=== PATIENT | male | born 1965 | race Caucasian/White ===

== ENCOUNTER 2017-08-15 11:58 | Observation (INO) | payer OTHER ==
[2017-08-15] MEDS ORDERED: FAMOTIDINE 20 MG TAB PO ONE (12:00)
[2017-08-15] MEDS ORDERED: NS 1,000 ML IV ONE (12:00)
[2017-08-15] MEDS ORDERED: diphenhydrAMINE 25 MG CAP PO ONE ×2 (12:00→15:01)
[2017-08-15] MEDS ORDERED: DIAZEPAM 5 MG TAB PO ONE (12:00)
[2017-08-15] MEDS ORDERED: ASPIRIN EC 325 MG TAB PO ONE ×2 (12:00→15:02)
--- NOTE | 2017-08-15 12:07 | CPEKG ---
Heart Rate: 75 RR Interval: 800 P-R Interval: 168 QRSD Interval: 74 QT Interval: 348 QTC Interval: 389 P [place]: 55 QRS [place]: 27 T Wave [place]: 35 EKG Severity - NORMAL ECG - EKG Impression: SINUS RHYTHM Electronically Signed By: Hemal Espana 15-Aug-2017 12:28:08
[2017-08-15 12:28] LABS: PLATELET COUNT 240 10^3/uL (150-400)
[2017-08-15 12:33] LABS: INR 0.88 (0.83-1.16); PROTIME(PATIENT) 12.2 SEC (12.0-15.0)
[2017-08-15] MEDS ORDERED: DIAZEPAM 5 MG TAB ONE (15:02)
[2017-08-15] MEDS ORDERED: FAMOTIDINE 20 MG TAB ONE (15:02)
--- NOTE | 2017-08-15 15:58 | PDPROPOC ---
Sedation Plan of Care Sedation Plan of Care: vital signs stable, mental status noted, patient educated of risks, benefits, alternatives, patient can tolerate sedation ASA Classification: ASA 1 Planned drugs: fentanyl, midazolam Mallampati Score: Class 2 Mallampati Reference Image: Patient passed 3-3-2 rule?: Yes
--- NOTE | 2017-08-15 15:58 | PDHPUP ---
History & Physical Update H&P update statement: This history and physical update is based on an assessment of the patient which was completed after admission or registration (within 24 hours), but prior to the surgery/procedure. H&P update: H&P reviewed & patient examined, no change in patient's condition since H&P completed
[2017-08-15] MEDS ORDERED: HEPARIN 10,000 UNIT/10 ML MDV (1,000 UNIT/ML) ONE ×2 (16:03→17:00)
[2017-08-15] MEDS ORDERED: MIDAZOLAM 2 MG/2 ML VIAL ONE ×2 (16:03→16:56)
[2017-08-15] MEDS ORDERED: LIDOCAINE 1% 300 MG/30 ML SDV ONE (16:03)
[2017-08-15] MEDS ORDERED: fentaNYL 100 MCG/2 ML INJ ONE ×3 (16:03→17:21)
[2017-08-15] MEDS ORDERED: VERAPAMIL 5 MG/2 ML VIAL ONE (16:03)
[2017-08-15] MEDS ORDERED: IOPAMIDOL (ISOVUE-370) 150 ML BTL IV ONE (16:04)
[2017-08-15] MEDS ORDERED: BIVALIRUDIN 250 MG/5 ML VIAL IV ONE (16:58)
[2017-08-15] MEDS ORDERED: NITROGLYCERIN 1,500 MCG/15 ML VIAL MISC ONE (17:10)
[2017-08-15] MEDS ORDERED: PRASUGREL HCL 10 MG TAB ONE ×2 (17:42→17:44)
[2017-08-15] MEDS ORDERED: ATROPINE SULFATE 1 MG/10 ML SYR IVP PRN (18:06)
[2017-08-15] MEDS ORDERED: NITROGLYCERIN 0.4 MG BTL SL PRN (18:06)
[2017-08-15] MEDS ORDERED: ACETAMINOPHEN 325 MG TAB PO PRN (18:06)
[2017-08-15] MEDS ORDERED: PRASUGREL HCL 10 MG TAB PO ONE (18:06)
[2017-08-15] MEDS ORDERED: ONDANSETRON 4 MG/2 ML VIAL IVP PRN (18:06)
[2017-08-15] MEDS ORDERED: TEMAZEPAM 15 MG CAP PO PRN (18:06)
[2017-08-15] MEDS ORDERED: NS 1,000 ML IV SCH (18:15)
--- NOTE | 2017-08-15 18:19 | PDDXCAT ---
Diagnostic Cath Note - . Date: 08/15/17 Supervisor [employer]: Santosh Indication: other (CCS class III angina and early positive ETT.) - Procedure Access: right wrist (Radial artery spasm dictated a switch to the femoral approach for the interventional portion of the procedure.) - Materials Left Heart Cath size: 5F Left Heart Cath materials: standard multipack (JL4, JR4, pigtail) - Findings-Left Heart Catheterization LM: Normal. LAD: Mild irregularities. LCX: Focal 90% mid-circumflex lesion; otherwise mild irregularities. RCA: Mild irregularities. EDP: 23 mmHg LVEF: 55% Wall motion: Normal. Complications: None Estimated blood loss: <50ml Closure method: Angioseal (TR Band for radial site.) Assessment: 1) Normal LV systolic function. 2) CCAD as described above. 3) Successful PCI of the circumflex with placement of a single drug coated stent. Intervention: Based on the patient's clinical history and diagnostic angiography, the decision was made to perform percutaneous coronary intervention of the circumflex. The patient received 3000 units of intravenous heparin in addition to the 5000 units that had been given at the beginning of the procedure. A 6 Amharic CLS 3.5 guide catheter was advanced to the left main. An Intuition guidewire was advanced into the distal portion of the circumflex. Predilatation of the focal 90% lesion in the midportion of the circumflex was performed using a 2.5 x 8 mm Emerge balloon. A 3.0 x 12 mm Synergy stent was then advanced into position and deployed at high pressure. Final angiograms demonstrated 0% residual stenosis and MURIEL-III flow.
--- NOTE | 2017-08-15 18:28 | CPEKG ---
Heart Rate: 58 RR Interval: 1034 P-R Interval: 180 QRSD Interval: 78 QT Interval: 404 QTC Interval: 397 P [place]: 44 QRS [place]: 38 T Wave [place]: 32 EKG Severity - NORMAL ECG - EKG Impression: SINUS RHYTHM Electronically Signed By: Hemal Espana 16-Aug-2017 07:24:04
[2017-08-15] MEDS: HYDROCODONE/APAP 5/325 TAB PO PRN (20:10)
[2017-08-15] MEDS ORDERED: TAMSULOSIN HCL 0.4 MG CAP PO SCH (21:00)
[2017-08-16] MEDS: HYDROCODONE/APAP 5/325 TAB PO PRN (05:33)
[2017-08-16] MEDS ORDERED: PANTOPRAZOLE SODIUM 40 MG TAB PO SCH (07:30)
[2017-08-16] MEDS ORDERED: ASPIRIN EC 325 MG TAB PO SCH (09:00)
[2017-08-16] MEDS ORDERED: PRASUGREL HCL 10 MG TAB PO SCH (09:00)
[2017-08-16] MEDS ORDERED: ATORVASTATIN CALCIUM 40 MG TAB PO SCH (09:00)
[2017-08-16] MEDS ORDERED: LOSARTAN POTASSIUM 50 MG TAB PO SCH (10:00)
[2017-08-16] MEDS ORDERED: METOPROLOL SUCCINATE XR 25 MG TAB PO SCH (12:00)
[2017-08-16 12:40] VITALS: O2SAT 97
[2017-08-16 12:41] VITALS: BP 132/67; RESP 14; TEMP 98.6
[2017-08-16 12:44] VITALS: PULSE 77
--- NOTE | 2017-08-16 13:44 | GDS ---
[f rep st] DISCHARGE SUMMARY REASON FOR ADMISSION: Coronary artery disease. HOSPITAL COURSE: Please refer to the recent office note by Dr. Milton Li, which serves as the hist ory and physical for this hospital encounter. Also, refer to my prepared cardiac catheterization rep ort. The patient is a 52-year-old male who recently presented with new-onset exertional angina. He was seen in the office by Dr. Li and an exercise treadmill test was scheduled. Yesterday he under went that study and had clinical angina and ischemic ST-segment changes early in stage 2 of his stres s test. On the basis of his history and stress test findings, Dr. Li asked that he be sent to the hospital for cardiac catheterization. Yesterday that procedure demonstrated normal left ventricular systolic function, minimal irregularities of the left anterior descending and right coronary artery, and a focal high-grade stenosis in the midportion of the circumflex. He underwent PCI with placemen t of a 3.0 x 12 mm Synergy drug-coated stent. The angiographic outcome was excellent. Overnight, he has had no complications or bleeding issues. His catheterization procedure was initiated from the r ight radial approach. The diagnostic portion of the study was completed, but when the interventional portion of the procedure was begun, he began to develop radial artery spasm necessitating a switch t o the right femoral approach. He is not having any significant discomfort at either site. He has no t had any hematoma formation. He is stable and ready for discharge. RECOMMENDATIONS AND DISPOSITION ON DISCHARGE: The patient is discharged in stable condition. He kavya uld follow a heart healthy diet. He will be contacted by cardiac rehab and was encouraged to attend. Please refer to the electronic record for his discharge medications. The only changes being made a re the addition of Effient 10 mg daily and an increase of his atorvastatin to 40 mg daily. Lipid metzger el performed during his hospital stay demonstrated a total cholesterol of 239 with HDL 33, and trigly cerides 525. A calculated LDL could not be provided due to his hypertriglyceridemia. A directly lyndon sured LDL has been requested to be drawn prior to his discharge. This morning genetic testing was al so sent to determine his clopidogrel metabolism. The office staff at [facility] has been instructed to contact the patient to arrange a followup ap pointment in the near future with Dr. Li. DISCHARGE DIAGNOSES: 1. Coronary artery disease. 2. Hypercholesterolemia. 3. Hypertriglyceridemia. 4. Status post uneventful percutaneous intervention of the circumflex with placement of a single vianey g-coated stent. /[id number]/MODL
[2017-08-16] MEDS ORDERED: MULTIVITAMINS 1 EACH TAB PO SCH (18:00)
[2017-08-16] MEDS ORDERED: ASCORBIC ACID 500 MG TAB PO SCH (18:00)
== END 2017-08-16 15:26 | disposition home or self-care (01) ==
LOC: FCATH 11:58 → F2W 17:15 → F2N 19:20
PROVIDERS: ADMIT Internal Medicine Interventional Cardiology; ATTEND Internal Medicine Interventional Cardiology
DX: I25.119 Atherosclerotic heart disease of native coronary artery with unspecified angina pectoris (principal); E78.5 Hyperlipidemia, unspecified; I10 Essential (primary) hypertension; E11.9 Type 2 diabetes mellitus without complications; Z82.49 Family history of ischemic heart disease and other diseases of the circulatory system; Z88.2 Allergy status to sulfonamides
CPT/HCPCS: 81225-90; C1725; C1760; C1769; C1874; C1887; C9600; G0378; J0583; J1200; J1644; J2250; J3010; Q9967

== ENCOUNTER 2018-01-27 10:53 | Observation (INO) | payer OTHER ==
--- NOTE | 2018-01-27 11:06 | CPEKG ---
Heart Rate: 93 RR Interval: 645 P-R Interval: 148 QRSD Interval: 74 QT Interval: 328 QTC Interval: 408 P [place]: 47 QRS [place]: 15 T Wave [place]: 27 EKG Severity - NORMAL ECG - EKG Impression: SINUS RHYTHM Electronically Signed By: Keke Manrique 27-Jan-2018 15:18:10
[2018-01-27] MEDS ORDERED: ASPIRIN 81 MG CHEWABLE TAB ONE (11:13)
--- NOTE | 2018-01-27 12:21 | EDPHY ---
H & P Stated Complaint: Chest pain, dizziness,sweating, neck and left arm pain Time Seen by Provider: 01/27/18 11:45 HPI/ROS: CHIEF COMPLAINT: Pain between shoulder blades, chest pain HISTORY OF PRESENT ILLNESS: 53-year-old male with CAD, status post stent placement, presents with chest and upper back pain. 1 week ago he developed dizziness, nausea and sweatiness, which he feels is typical of his cardiac symptoms. He called the cardiology office and his metoprolol was increased. Onset of pain between his shoulder brain early age yesterday morning upon awakening. The pain is severe and does not change with exertion or with movement. This morning he awoke with moderate chest tightness, which ultimately prompted his ED visit. No shortness of breath. Prior to stent placement, he had similar chest tightness. No prior history of pain between his shoulder blades. REVIEW OF SYSTEMS: complete 10 point ROS negative except at noted in the HPI - Personal History Current Tetanus/Diphtheria Vaccine: Unsure Current Tetanus Diphtheria and Acellular Pertussis (TDAP): Unsure - Medical/Surgical History Hx Asthma: No Hx Chronic Respiratory Disease: No Hx Diabetes: No Hx Cardiac Disease: Yes Hx Renal Disease: No Hx Cirrhosis: No Hx Alcoholism: No Hx HIV/AIDS: No Hx Splenectomy or Spleen Trauma: No Other PMH: gbladder, R hip, Bilat Wrist, L bunionectomy,Stent 08/2017 - Social History Smoking Status: Light smoker Constitutional: Initial Vital Signs Temperature (C) 36.5 C 01/27/18 10:56 Heart Rate 106 H 01/27/18 10:56 Respiratory Rate 18 01/27/18 10:56 Blood Pressure 141/94 H 01/27/18 10:56 O2 Sat (%) 99 01/27/18 10:56 O2 Delivery Mode Nasal Cannula O2 (L/minute) 2 Allergies/Adverse Reactions: ciprofloxacin [From Cipro] Allergy (Verified 01/27/18 11:00) Rash erythromycin base Allergy (Verified 01/27/18 11:00) Hives latex Allergy (Verified 01/27/18 11:00) Rash Sulfa (Sulfonamide Antibiotics) Allergy (Verified 01/27/18 11:00) Hives Home Medications: Medication Instructions Recorded Ascorbic Acid [Vitamin C 500 mg 1,000 mg PO DAILY18 08/15/17 (*)] Aspirin EC [Aspirin EC 81 mg (*)] 81 mg PO DAILY@18 08/15/17 Esomeprazole Mag Trihydrate 40 mg PO DAILY06 08/15/17 [Nexium] Herbals/Supplements -Info Only 1 ea PO DAILY 08/15/17 Metoprolol Succinate Xr [Toprol Xl 25 mg PO DAILY@12 08/15/17 25 mg (*)] Multivitamins [Multivitamin (*)] 1 each PO DAILY18 08/15/17 Nitroglycerin [Nitrostat 0.4 mg 0.4 mg SL Q5M PRN 08/15/17 (*)] Tadalafil [Cialis] 10 mg PO DAILY PRN 08/15/17 Tamsulosin HCl [Flomax 0.4 MG (*)] 0.4 mg PO HS 08/15/17 Prasugrel HCl [Effient 10mg (*)] 10 mg PO DAILY #30 tab 08/16/17 Losartan Potassium [Cozaar 25 mg 25 mg PO HS 01/27/18 (*)] Pravastatin Sodium [Pravachol] 10 mg PO HS 01/27/18 Medical Decision Making - Diagnostics EKG Interpretation: EKG interpreted by me reveals normal sinus rhythm, rate 93, minimal ST segment depression in leads V2 and V3. Interpretation: borderline EKG Imaging Results: Imaging Impressions Chest X-Ray 01/27/18 11:45 Impression: Clear lungs. No acute process. Chest/Thorax CTA 01/27/18 12:18 Impression: 1. No evidence of thrombopulmonary embolic disease. 2. Normal caliber aorta. No dissection or aneurysm. 3. Mild airways disease. 4. No fracture or explanation for scapular pain. Findings discussed with Emergency Department physician, Keke Manrique on 2017, 12:47. ED Course/Re-evaluation: This patient presents with chest and upper back pain. Stat EKG reveals minimal ST segment depression in leads V2 and V3. Troponin is negative. Clinical history concerning for aortic dissection. CTA of the chest ordered and is unremarkable; no evidence of dissection or pulmonary embolism. Dilaudid 0.5 mg IV given for pain control with some relief. However he continues to have persistent chest pain. Given high risk for acute coronary syndrome, this patient will need to be admitted for further cardiac evaluation. Stable through his ED stay. The hospitalist service was consulted for admission. Differential Diagnosis: Differential diagnosis includes though it is not limited to pneumonia, pneumothorax, pulmonary embolism, aortic dissection, pericarditis, acute coronary syndrome. - Data Points Laboratory Results: Laboratory Results 01/27/18 11:08 01/27/18 11:08 01/27/18 01/27/18 01/27/18 11:13 11:08 11:08 WBC 6.34 10^3/uL 10^3/uL (3.80-9.50) RBC 4.91 10^6/uL 10^6/uL (4.40-6.38) Hgb 16.1 g/dL g/dL (13.7-17.5) Hct 46.9 % % (40.0-51.0) MCV 95.5 fL fL (81.5-99.8) MCH 32.8 pg pg (27.9-34.1) MCHC 34.3 g/dL g/dL (32.4-36.7) RDW 13.0 % % (11.5-15.2) Plt Count 275 10^3/uL 10^3/uL (150-400) Sodium 139 mEq/L mEq/L (135-145) Potassium 3.9 mEq/L mEq/L (3.3-5.0) Chloride 106 mEq/L mEq/L (97-110) Carbon Dioxide 23 mEq/l mEq/l (22-31) Anion Gap 10 mEq/L mEq/L (8-16) BUN 12 mg/dL mg/dL (7-23) Creatinine 0.9 mg/dL mg/dL (0.7-1.3) Estimated GFR > 60 Glucose 163 mg/dL H mg/dL (70-100) Calcium 10.1 mg/dL mg/dL (8.5-10.4) Total Bilirubin 0.4 mg/dL mg/dL (0.1-1.4) AST 20 IU/L IU/L (17-59) ALT 36 IU/L IU/L (21-72) Alkaline Phosphatase 61 IU/L IU/L (38-126) POC Troponin I 0.00 ng/mL ng/mL (0.00-0.08) Total Protein 7.9 g/dL g/dL (6.3-8.2) Albumin 5.1 g/dL H g/dL (3.5-5.0) Medications Given: Discontinued Medications Aspirin (Aspirin) 324 mg PO EDNOW ONE Stop: 01/27/18 12:52 Last Admin: 01/27/18 12:52 Dose: 324 mg Hydromorphone HCl (Dilaudid) 0.5 mg IVP EDNOW ONE Stop: 01/27/18 12:50 Last Admin: 01/27/18 12:52 Dose: 0.5 mg Morphine Sulfate (Morphine) 6 mg IVP EDNOW ONE Stop: 01/27/18 12:23 Last Admin: 01/27/18 12:52 Dose: Not Given Ondansetron HCl (Zofran) 4 mg IVP EDNOW ONE Stop: 01/27/18 12:23 Last Admin: 01/27/18 12:43 Dose: 4 mg Point of Care Test Results: Chemistry 01/27/18 11:13 POC Troponin I 0.00 ng/mL ng/mL (0.00-0.08) Departure - Departure Disposition: [facility] Inpatient Acute Clinical Impression: Chest pain Qualifiers: Chest pain type: precordial pain Qualified Code(s): R07.2 - Precordial pain Condition: Fair
[2018-01-27] MEDS ORDERED: ONDANSETRON 4 MG/2 ML VIAL IVP ONE (12:22)
[2018-01-27] MEDS ORDERED: IOPAMIDOL (ISOVUE 370) 100 ML BTL IV ONE (12:23)
[2018-01-27] MEDS ORDERED: HYDROmorphONE/DILAUDID 1 MG/ML INJ ONE (12:48)
[2018-01-27] MEDS ORDERED: HYDROmorphONE/DILAUDID 2 MG/ML INJ IVP ONE (12:49)
[2018-01-27] MEDS ORDERED: ASPIRIN 81 MG CHEWABLE TAB PO ONE (12:51)
[2018-01-27] MEDS ORDERED: ONDANSETRON DISINTEGRATING 4 MG TAB PO PRN (13:58)
[2018-01-27] MEDS ORDERED: ONDANSETRON 4 MG/2 ML VIAL IVP PRN (13:58)
--- NOTE | 2018-01-27 14:20 | ASMTCMCOM ---
CM Note CM Note Notes: Chart reviewed. 53 year old male with known history of CAD admitted via ED for c/o pain between his shoulder blades, He is admitted for this reason. Normally lives independent with his life partner. No needs anticipated at this time. CM available should needs arise. Plan: TBD Date Signed: 01/27/2018 02:20 PM Electronically Signed By:Carmen Dee RN
--- NOTE | 2018-01-27 14:23 | PDGENHP ---
History and Physical - Chief Complaint pain between shoulder blades - History of Present Illness 53yo M with history of CAD s/p ALETHEA to mid-x 08/2017 due to unstable angina with preserved LV function presents with 1 day of pain between shoulder blades. Started yesterday with normal activities and seemed to lessen with rest. Did radiate to left arm this morning and around to throat area that prompted him to come to ED. This pain is slightly similar to pain that prompted coronary angiography in August but this time there is no chest tightness. Not exertional, pleuritic or positional. No leg swelling, orthopnea, syncope. Over the last week has noticed intermittent diaphoresis, nausea, palpitations but not explicitly associated with his presenting symptom. He only took tylenol for the pain. He hasn't missed any doses of prasugrel but missed the last 3 days of aspirin. 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 He has been doing well in cardiac rehab with no anginal symptoms. In the ED, ECG showed ST depressions <1mm in V2-4 and had negative POC troponin. A CTA chest was negative for PE and aortic pathology. Admitted for ACS rule out. History Information - Allergies/Home Medication List Allergies/Adverse Reactions: ciprofloxacin [From Cipro] Allergy (Verified 01/27/18 11:00) Rash erythromycin base Allergy (Verified 01/27/18 11:00) Hives latex Allergy (Verified 01/27/18 11:00) Rash Sulfa (Sulfonamide Antibiotics) Allergy (Verified 01/27/18 11:00) Hives Home Medications: Ascorbic Acid [Vitamin C 500 mg (*)] 1,000 mg PO DAILY18 08/15/17 [Last Taken ] Aspirin EC [Aspirin EC 81 mg (*)] 81 mg PO DAILY@18 08/15/17 [Last Taken 324] Esomeprazole Mag Trihydrate [Nexium] 40 mg PO DAILY06 08/15/17 [Last Taken 01/27] Herbals/Supplements -Info Only 1 ea PO DAILY 08/15/17 [Last Taken Unknown] Metoprolol Succinate Xr [Toprol Xl 25 mg (*)] 25 mg PO DAILY@12 08/15/17 [Last Taken 01/27/18] Multivitamins [Multivitamin (*)] 1 each PO DAILY18 08/15/17 [Last Taken 08/14/17 ] Nitroglycerin [Nitrostat 0.4 mg (*)] 0.4 mg SL Q5M PRN 08/15/17 [Last Taken Unknown] Tadalafil [Cialis] 10 mg PO DAILY PRN 08/15/17 [Last Taken 01/13/18] Tamsulosin HCl [Flomax 0.4 MG (*)] 0.4 mg PO HS 08/15/17 [Last Taken 01/26/18] Losartan Potassium [Cozaar 25 mg (*)] 25 mg PO HS 01/27/18 [Last Taken 01/26/18] Pravastatin Sodium [Pravachol] 10 mg PO HS 01/27/18 [Last Taken 01/26/18] I have personally reviewed and updated: family history, medical history, social history, surgical history - Past Medical History Additional medical history: CAD s/p ALETHEA to LCs (08/2017), hypertriglyceridemia, erectile dysfunction, gerd - Surgical History Additional surgical history: cholecystectomy, several orthopedic procedures, left knee reconstruction - Family History Additional family history: mother - [place] at 54, no known diabetes - Social History Smoking Status: Light smoker (uses vap pen daily) Alcohol Use: Rarely Drug Use: Marijuana Review of Systems Review of Systems: ROS: 10pt was reviewed & negative except for what was stated in HPI & below Constitutional: Reports: diaphoresis. Denies: chills, fever EENMT: Reports: no symptoms Cardiac: Reports: palpitations. Denies: chest pain, edema, syncope Respiratory: Reports: shortness of breath. Denies: cough, orthopnea Gastrointestinal: Reports: nausea. Denies: vomitting, diarrhea Genitourinary: Reports: no symptoms Muscolosketal: Reports: back pain Skin: Reports: no symptoms Neurological: Reports: no symptoms Hematologic/Lymphatic: Reports: no symptoms Physical Exam Physical Exam: Temp Pulse Resp BP Pulse Ox 36.5 C 71 16 131/83 H 99 01/27/18 10:56 01/27/18 13:26 01/27/18 13:26 01/27/18 13:26 01/27/18 13:26 O2 (L/minute) 2 Constitutional: no apparent distress, appears nourished, not in pain Eyes: PERRL, anicteric sclera, EOMI Ears, Nose, Mouth, Throat: moist mucous membranes, hearing normal, ears appear normal, no oral mucosal ulcers Cardiovascular: regular rate and rhythym, no murmur, rub, or gallop, pulses symmetric bilaterally, No JVD, No edema Respiratory: no respiratory distress, no rales or rhonchi, clear to auscultation Gastrointestinal: normoactive bowel sounds, soft, non-tender abdomen, no palpable masses Genitourinary: no bladder fullness, no bladder tenderness Skin: warm, normal color, no rashes or abrasions, no fluctuance, no induration, No mottled Musculoskeletal: other (mild tenderness between scapular region) Neurologic: AAOx3, sensation intact bilaterally, CN II-XII Intact Psychiatric: interacting appropriately, not anxious, not encephalopathic, thought process linear Lab Data & Imaging Review 01/27/18 11:08 01/27/18 11:08 WBC 6.34 10^3/uL (3.80-9.50) 01/27/18 11:08 RBC 4.91 10^6/uL (4.40-6.38) 01/27/18 11:08 Hgb 16.1 g/dL (13.7-17.5) 01/27/18 11:08 Hct 46.9 % (40.0-51.0) 01/27/18 11:08 MCV 95.5 fL (81.5-99.8) 01/27/18 11:08 MCH 32.8 pg (27.9-34.1) 01/27/18 11:08 MCHC 34.3 g/dL (32.4-36.7) 01/27/18 11:08 RDW 13.0 % (11.5-15.2) 01/27/18 11:08 Plt Count 275 10^3/uL (150-400) 01/27/18 11:08 Sodium 139 mEq/L (135-145) 01/27/18 11:08 Potassium 3.9 mEq/L (3.3-5.0) 01/27/18 11:08 Chloride 106 mEq/L (97-110) 01/27/18 11:08 Carbon Dioxide 23 mEq/l (22-31) 01/27/18 11:08 Anion Gap 10 mEq/L (8-16) 01/27/18 11:08 BUN 12 mg/dL (7-23) 01/27/18 11:08 Creatinine 0.9 mg/dL (0.7-1.3) 01/27/18 11:08 Estimated GFR > 60 01/27/18 11:08 Glucose 163 mg/dL (70-100) H 01/27/18 11:08 Calcium 10.1 mg/dL (8.5-10.4) 01/27/18 11:08 Total Bilirubin 0.4 mg/dL (0.1-1.4) 01/27/18 11:08 AST 20 IU/L (17-59) 01/27/18 11:08 ALT 36 IU/L (21-72) 01/27/18 11:08 Alkaline Phosphatase 61 IU/L (38-126) 01/27/18 11:08 POC Troponin I 0.00 ng/mL (0.00-0.08) 01/27/18 11:13 Total Protein 7.9 g/dL (6.3-8.2) 01/27/18 11:08 Albumin 5.1 g/dL (3.5-5.0) H 01/27/18 11:08 Visualized and Interpreted Chest x-ray results: Yes Chest X-Ray results: no infiltrate, normal, normal heart size Visualized and Interpreted EKG results: Yes EKG Interpretation: Positive for: normal sinsus rhythm, ST depression (<1mm STD in V2-4) Assessment & Plan Assessment: 53yo M with history of CAD s/p ALETHEA to LCx 08/2017 with preserved LV function presents with 1 day of pain between scapulae admitted for ACS rule out. Plan: #Back pain: CTA chest without PE or aortic dissection. Seems non-cardiac although slightly similar presentation when had unstable angina in past. Additionally has ST depressions in precordial leads. Initial troponin negative. Will trend serial troponins/ECGs, monitor on telemetry. Obtain TTE. Holding on systemic anticoagulation and stress test. Discuss with cardiology in AM. Continue DAPT, statin. #CAD: S/p ALETHEA to mid-LCx 08/2017 for unstable angina; minimal disease in LAD and RCA. Followed by Dr Li who last saw 09/2017. Continue aspirin, prasugrel, statin, BB. #Hyperlipidemia with hypertriglyceridemia: Continue statin. #GERD: Continue PPI VTE ppx: low risk, SCDs Diet: cardiac Code: FCFT Dispo: admit under observation to rule out ACS in high risk patient
--- NOTE | 2018-01-27 16:19 | CPEKG ---
Heart Rate: 59 RR Interval: 1017 P-R Interval: 184 QRSD Interval: 74 QT Interval: 400 QTC Interval: 397 P [place]: 47 QRS [place]: 29 T Wave [place]: 32 EKG Severity - NORMAL ECG - EKG Impression: SINUS RHYTHM Electronically Signed By: Raúl Mosqueda 27-Jan-2018 18:22:02
[2018-01-27] MEDS: NITROGLYCERIN 0.4 MG BTL SL PRN ×3 (16:41→16:57)
[2018-01-27] MEDS: ASPIRIN EC 81 MG TAB PO SCH (18:43)
[2018-01-27] MEDS ORDERED: NITROGLYCERIN/DEXTROSE 250 ML IV SCH (19:00)
[2018-01-27] MEDS: ACETAMINOPHEN 325 MG TAB PO PRN (19:45)
[2018-01-27] MEDS: PRAVASTATIN SODIUM 10 MG TAB PO SCH (21:46)
[2018-01-27] MEDS: TAMSULOSIN HCL 0.4 MG CAP PO SCH (21:46)
[2018-01-27] MEDS: LOSARTAN POTASSIUM 25 MG TAB PO SCH (21:47)
[2018-01-27] MEDS ORDERED: MELATONIN 3 MG TAB PO PRN (23:27)
[2018-01-28] MEDS: oxyCODONE IR 5 MG TAB PO PRN ×2 (05:13→09:52)
[2018-01-28] MEDS ORDERED: PANTOPRAZOLE SODIUM 40 MG TAB PO SCH ×2 (09:00→21:00)
[2018-01-28] MEDS ORDERED: PRASUGREL HCL 10 MG TAB PO SCH (09:00)
[2018-01-28] MEDS ORDERED: diphenhydrAMINE 25 MG CAP PO ONE ×2 (11:30→11:48)
[2018-01-28] MEDS ORDERED: ACETAMINOPHEN 325 MG TAB PO PRN (11:30)
[2018-01-28] MEDS ORDERED: ASPIRIN EC 325 MG TAB PO ONE ×2 (11:30→11:48)
[2018-01-28] MEDS ORDERED: FAMOTIDINE 20 MG TAB PO ONE (11:30)
[2018-01-28] MEDS ORDERED: DIAZEPAM 5 MG TAB PO ONE (11:30)
[2018-01-28] MEDS ORDERED: TEMAZEPAM 15 MG CAP PO PRN (11:30)
[2018-01-28] MEDS ORDERED: NITROGLYCERIN 0.4 MG BTL SL PRN (11:30)
[2018-01-28] MEDS ORDERED: LIDOCAINE 1% 300 MG/30 ML SDV ONE (11:34)
[2018-01-28] MEDS ORDERED: IOPAMIDOL (ISOVUE-370) 150 ML BTL IV ONE (11:35)
[2018-01-28] MEDS ORDERED: fentaNYL 100 MCG/2 ML INJ ONE (11:35)
[2018-01-28] MEDS ORDERED: MIDAZOLAM 2 MG/2 ML VIAL ONE (11:35)
--- NOTE | 2018-01-28 11:36 | PDPROPOC ---
Sedation Plan of Care Sedation Plan of Care: mental status noted, patient educated of risks, benefits , alternatives, patient can tolerate sedation ASA Classification: ASA 2 Planned drugs: fentanyl, midazolam Mallampati Score: Class 2 Mallampati Reference Image: Patient passed 3-3-2 rule?: Yes
--- NOTE | 2018-01-28 11:44 | ECHO ---
[email or web address] [address] [address] Main: [phone] Fax: [email or web address] Echocardiogram Name: VALERIY DUMONT MR#: [id number] Study Date: 01/28/2018 Study Time: 10:38 AM Date of : 1965 Age: 53 year(s) Height: 182.9 cm (72 in.) Weight: 83.01 kg (183 lb.) BSA: 2.05 m2 Gender: Male Examination: Echo Indication: Chest Pain, Hx of stent last August Image Quality: Contrast: Requested by: Dandy Laguna BP: 128 mmHg/67 mmHg Heart Rate: Rhythm: Normal sinus rhythm Indication: Chest Pain, Hx of stent last August Procedure Staff Block Saw Operator: Caleb Chino RDCS Reading Physician: Hemal Espana MD Requesting Provider: Conclusions: Normal global systolic LV function. EF is 62 %. Trivial tricuspid valve regurgitation. The pulmonary artery pressure is normal. Measurements: Chambers Valvular Assessment AV/MV Valvular Assessment TV/PV Normal Normal Normal Name Value Range Name Value Range Name Value Range Ao Genet (MM): 3.0 cm (2.2 cm-3.7 AV Vmax: 1.55 m/s (1 m/s-1.7 TR Vmax: 2.13 mm/s ( - ) cm) m/s) TR PGmax: 18 mmHg ( - ) IVSd (2D): 0.8 cm (0.6 cm-1.1 AV maxP mmHg ( - ) syst. PAP: 23 mmHg ( - ) cm) LVOT Vmax: 0.97 m/s (0.7 m/s-1.1 PV Vmax: 1.06 m/s (0.6 m/s-0.9 LVDd (2D): 4.8 cm (4.2 cm-5.9 m/s) m/s) cm) MV E Vmax: 0.62 m/s ( - ) PV PGmax: 4 mmHg ( - ) LVDs (2D): 3.2 cm (2.1 cm-4 MV A Vmax: 0.74 m/s ( - ) cm) MV E/A: 0.84 ( - ) LVPWd (2D): 0.9 cm (0.6 cm-1 cm) LVEF (2D): 62 (>=54 %) Continued Measurements: Chambers Valvular Assessment AV/MV Valvular Assessment TV/PV Name Value Name Value Name Value LADs Lon.5 cm MV E' Septal: 0.07 m/s CVP (est.): 5 mmHg LA Area: 14.5 cm2 MV E/E' Septal: 9.10 LA Volume: 39 ml MV E/E' Lateral: 11.20 LA Volume Index: 19.0 ml/m2 Patient: VALERIY DUMONT Study Date: 01/28/2018 Page 1 of 2 10:38 AM Findings: Left Ventricle: Normal size left ventricle. No LV hypertrophy. Normal global systolic LV function. EF is 62 %. No regional wall motion abnormality. Right Ventricle: Normal size right ventricle. Normal RV function. Left Atrium: The left atrium is normal in size. Right Atrium: The right atrium is normal in size. Mitral Valve: The mitral valve is normal in appearance and function. There is no mitral valve regurgitation. Aortic Valve: The aortic valve is tri-leaflet and functions normally. Tricuspid Valve: The tricuspid valve is normal in appearance and function. Trivial tricuspid valve regurgitation. The pulmonary artery pressure is normal. Pulmonic Valve: The pulmonic valve is normal in appearance and function. Aorta: The aorta is normal. Pericardium: No pericardial effusion. (No Signature Object) Patient: VALERIY DUMONT Study Date: 01/28/2018 Page 2 of 2 10:38 AM [id number]
[2018-01-28] MEDS ORDERED: FAMOTIDINE 20 MG TAB ONE (11:48)
[2018-01-28] MEDS ORDERED: DIAZEPAM 5 MG TAB ONE (11:48)
[2018-01-28] MEDS ORDERED: METOPROLOL SUCCINATE XR 25 MG TAB PO SCH (12:00)
--- NOTE | 2018-01-28 12:02 | ASMTCMCOM ---
CM Note CM Note Notes: Patient to [facility] for angiogram. Needs TBD at this time. CM to sandra. Plan: TBD Date Signed: 01/28/2018 11:54 AM Electronically Signed By:Carmen Dee RN
--- NOTE | 2018-01-28 12:08 | GCON ---
[f rep st] CONSULTATION CARDIOLOGY CONSULT CHIEF COMPLAINT: Chest pain. HISTORY OF PRESENT ILLNESS: This is a 53-year-old male with history of coronary artery disease statu s post stenting in August of 2017 with ALETHEA to left circumflex artery. The patient was admitted to [facility] in the last 24 hours with complaint of back pain with mild chest discomfort radiating to the left arm. Currently, he ranks the pain as 2/10 on a nitroglycerin drip. He denies any shortness of breath. No abdominal pain. Blood pressure and heart rate are currently stable. EC G shows sinus rhythm with no acute ST changes. Troponins are negative x2 sets. However, the patient still indicates without the nitroglycerin, he has significant discomfort. PAST MEDICAL HISTORY: Significant for coronary artery disease, hypertension, GERD. HOME MEDICATIONS: Consist of aspirin, Nexium, Toprol-XL, Cialis, Flomax, losartan, Pravastatin. SOCIAL HISTORY: Denies any smoking with cigarettes. He does use of a Vape pen. Occasional marijuan a use. Rare alcohol use. FAMILY HISTORY: Significant for coronary artery disease in the maternal side. SURGICAL HISTORY: History of cholecystectomy, PCI in August 2017. REVIEW OF SYSTEMS: Patient currently denies any vision changes. No headache. No palpitations. He does indicate 2/10 chest discomfort in the substernal area. No lower back pain. Does indicate havin g some mild upper back pain. No abdominal pain. No lower extremity pain. No lower extremity swelli ng. No neurologic issues. PHYSICAL EXAM: VITAL SIGNS: Patient afebrile, 96, blood pressure 140/70, heart rate 70, respiration s 12, sat 95% room air. HEENT: Pupils equal, round, and reactive to light. Extraocular motion inta ct. HEART: Regular rate and rhythm. S1, S2. LUNGS: Clear to auscultation bilaterally. ABDOMEN: Soft, nontender, no guarding. EXTREMITIES: No clubbing, no cyanosis, no edema. NEUROLOGIC: Alert and oriented x3. LABORATORY VALUES: Currently show a white cell 6.3, hemoglobin 16.1, platelets 275. Troponins are n egative x2 sets. Creatinine of 0.9. ASSESSMENT/PLAN: Chest pain/back pain. At this time, the patient's pain is continuing despite being on nitroglycerin drip. His pain has significantly improved since being on nitroglycerin, giving us pause to think that his pain potentially is from underlying cardiac source. Given his recent stentin g as well as ongoing discomfort despite nitroglycerin use we will proceed with left heart catheteriza tion. I have explained the risks and possible complications of the procedure including bleeding, str awa, and possible , and he would like to proceed. We will make the patient n.p.o. and move allen patel with this morning. /[id number]/MODL
--- NOTE | 2018-01-28 13:09 | CPIP ---
[f rep st] INVASIVE CARDIAC PROCEDURE DATE OF PROCEDURE: 01/28/2018 INDICATION FOR PROCEDURE: Chest pain. PROCEDURE: 1. Nonselective right groin sheathogram. 2. Bilateral selective coronary angiography. 3. Left heart catheterization with left angiogram. Briefly, this is a 53-year-old male with history of recent PCI in August of 2017, complaining of ch est pain for the last 2 days. Given ongoing angina despite being on a nitroglycerin drip, we did pro ceed with left heart catheterization. DESCRIPTION OF PROCEDURE: After informed consent was obtained, the patient was brought to [facility], where the right groin was prepped and draped in normal sterile fashion. Using lidocaine, a short 6-Mongolian sheath in the right common femoral artery verified angiographically. With the 6-Mongolian sheath, a JL 4 catheter was advanced. Images of the left coronary artery revealed a normal left main. The left c ircumflex artery had a stent had takeoff of a small marginal 1. Just distal to this was a stent, whi ch was widely patent distally. The circumflex terminated to a marginal 2 out of marginal 3 arteries, which was widely patent. The LAD was a long vessel, which wrapped around the apex. There was 30% t o 40% disease in the midportion of the LAD, which was consistent with his prior angiographic films. Of note, at the level of the 30% to 40% disease in the mid LAD, there was a takeoff of a small diagon al artery with 70% ostial pinch, but again, this was a small vessel. Distally, the LAD was healthy a nd free of disease, and there was a second diagonal artery coming off, which was healthy and free of disease. After the images were obtained, the JL4 catheter was removed. The JR4 catheter was advanced to the right coronary artery. Images of the right coronary artery reve aled normal ostial RCA, 20% to 30% proximal RCA; mid RCA had 30% to 40% disease. Distally, the RPD a nd RPLS had mild plaque distally, but otherwise was healthy and free of disease. After the images we re obtained, the JR4 catheter was removed. A pigtail catheter was advanced to the left ventricle. E DP was 15 mmHg. The left pressure showed EF of 65% with no wall motion abnormalities. No pullback gradient between the LV and the aorta. Pigtail catheter was then removed. Right groin was closed with manual pressure. Patient tolerated the procedure well with no complications. IMPRESSION: 1. Widely patent stent in mid left circumflex artery. 2. 30% to 40% disease in the mid left anterior descending artery with a 70% ostial pinch of a small diagonal artery. 3. 30% disease of the mid right coronary artery. 4. Normal ejection fraction. PLAN: The patient's films are consistent with his prior angiogram in August 2017. There is no acu te plaque rupture that would explain his current symptoms. Given his normal troponins as well as his normal EKG findings, suspect his pain is coming from an alternate source, i.e., musculoskeletal vers us blood pressure. Would continue with aggressive medical therapy. No percutaneous coronary interve ntion warranted at this time. /[id number]/MODL
--- NOTE | 2018-01-28 16:54 | HOSPPROG ---
Hospitalist Progress Note Assessment/Plan: 53yo M with history of CAD s/p ALETHEA to LCx 08/2017 with preserved LV function presents with 1 day of chest pain. #Chest pain: Coronary angiography today with stable disease from 08/2017 and unlikely to be culprit for pain. CTA chest without PE or aortic dissection. Currently suspect GI (gerd vs esophagitis vs stricture) vs MSK etiology. Will trial BID PPI, GI cocktail PRN and see if he can get GI follow up for possible endoscopy. Additionally, we will monitor his R groin arteriotomy site for bleeding complications overnight. We have discontinued the nitroglycerin gtt. #CAD: S/p ALETHEA to mid-LCx 08/2017 for unstable angina; minimal disease in LAD and RCA. Followed by Dr Li who last saw 09/2017. Continue aspirin, prasugrel, statin, BB. #HTN: Controlled with BB, ARB. #Hyperlipidemia with hypertriglyceridemia: Continue statin. #GERD: Continue PPI VTE ppx: low risk, SCDs Diet: cardiac Code: FCFT Dispo: continue inpatient admission for management of chest pain and post-cath monitoring of arteriotomy site. Subjective: Had worsening chest pain overnight necessitating use of nitroglycerin gtt which improved pain. Remained hemodynamically and electrically stable. This morning, still having 2/10 chest pain. Consulted cardiology who took him for coronary angiography which showed stable disease from 08/2017. Objective: Vital Signs Temp Pulse Resp BP Pulse Ox 36.7 C 57 L 11 L 107/70 96 01/28/18 15:49 01/28/18 15:49 01/28/18 15:49 01/28/18 15:49 01/28/18 15:49 Laboratory Results 01/28/18 03:37 01/27/18 01/28/18 01/29/18 05:59 05:59 05:59 Intake Total 925 300 Balance 925 300 - Physical Exam Constitutional: no apparent distress, appears nourished, not in pain Eyes: PERRL, anicteric sclera, EOMI Ears, Nose, Mouth, Throat: moist mucous membranes, hearing normal, ears appear normal, no oral mucosal ulcers Cardiovascular: regular rate and rhythym, no murmur, rub, or gallop Respiratory: no respiratory distress, no rales or rhonchi, clear to auscultation Gastrointestinal: normoactive bowel sounds, soft, non-tender abdomen, no palpable masses Skin: no rashes or abrasions, no fluctuance, no induration Musculoskeletal: full muscle strength, no muscle tenderness, normal joint ROM Neurologic: AAOx3, sensation intact bilaterally Psychiatric: interacting appropriately, not anxious, not encephalopathic, thought process linear ICD10 Worksheet Patient Problems: Problems Problem Status Onset Chest pain Acute
[2018-01-28] MEDS ORDERED: MAG HYDROX/AL HYDROX/SIMETH 30 ML UDCUP PO PRN (16:55)
[2018-01-28] MEDS ORDERED: LIDOCAINE 2% VISCOUS 15 ML UDCUP PO PRN (16:55)
[2018-01-28] MEDS ORDERED: HYOSCYAMINE SULFATE 0.125 MG TAB PO PRN (16:55)
[2018-01-28] MEDS: ASPIRIN EC 81 MG TAB PO SCH (17:18)
[2018-01-28] MEDS: LOSARTAN POTASSIUM 25 MG TAB PO SCH (20:50)
[2018-01-28] MEDS: PRAVASTATIN SODIUM 10 MG TAB PO SCH (20:50)
[2018-01-28] MEDS: TAMSULOSIN HCL 0.4 MG CAP PO SCH (20:50)
[2018-01-28] MEDS: ACETAMINOPHEN 325 MG TAB PO PRN (22:37)
--- NOTE | 2018-01-29 07:23 | PDCARPN ---
Cardiology Progress Note Chief Complaint: CP Assessment/Plan: Assessment: CP HTN Plan: 01/29/18 07:22 Doing well overnight no current CP LHC- no new obstructive CAD that would explain symptoms BP stable consider GI etiology will follow as needed Subjective: feeling better Reviewed/Discussed With: multidisciplinary team Time Spent with Patient: greater than 25 minutes Time Spent with Patient: Greater than 25 minutes spent on this patients care, greater than 50% of time spent counseling, educating, and coordinating care regarding the above mentioned plan. Objective: Vital Signs (8 Hrs) Temp Pulse Resp BP Pulse Ox 01/29/18 04:00 36.7 C 61 16 96/67 L 92 Intake/Output (24 Hrs) 01/28/18 01/29/18 01/30/18 05:59 05:59 05:59 Intake Total 925 700 Output Total 200 Balance 925 500 Intake: Oral (ml) 925 400 IV Intake (ml) 300 Output: Urine (ml) 200 Toilet 200 Other: Weight 76.3 kg Number of Voids 1 Toilet 1 1 Result Diagrams: 01/29/18 03:18 01/28/18 03:37 Cardiac Labs: Cardiac Lab Results (72 Hrs) 01/27/18 01/27/18 20:10 13:58 Troponin I < 0.012 < 0.012 - Physical Exam Constitutional: healthy appearing Eyes: PERRL Ears, Nose, Mouth, Throat: moist mucous membranes Cardiovascular: regular rate and rhythm Peripheral Pulses: 1+: femoral (R), femoral (L) Respiratory: clear to auscultate bilat Gastrointestinal: normoactive bowel sounds Genitourinary: no suprapubic tenderness Skin: no rashes Musculoskeletal: no muscular tenderness Neurologic: AAOx3 Psychiatric: cooperative ICD10 Worksheet Patient Problems: Problems Problem Status Onset Chest pain Acute
[2018-01-29 11:36] VITALS: BP 122/78
--- NOTE | 2018-01-29 11:58 | PDDCSUM ---
Discharge Summary Discharge Summary: Date of Admission: 01/27/2018 Date of Discharge: 01/29/2018 Consultants: cardiology Procedures: coronary angiography, TTE Brief Hospital Course by Diagnosis: 53yo M with history of CAD s/p ALETHEA to LCx 08/2017 for unstable angina presents with 1 day of chest pain. #Chest pain: No ischemic ECG changes, troponins negative. Coronary angiography with stable disease from 08/2017. CTA chest without PE or aortic dissection. Suspect GI source (gerd vs esophagitis vs stricture vs esophageal spasm) vs MSK etiology. Will continue PPI and he has follow up with GI (Dr Ibarra, [facility]) later this week for additional testing. #CAD: S/p ALETHEA to mid-LCx 08/2017 for unstable angina; minimal disease in LAD and RCA. Followed by Dr Li who last saw 09/2017. Continue aspirin, prasugrel, statin, BB. #HTN: Controlled with BB, ARB. #Hyperlipidemia with hypertriglyceridemia: Continue statin. Items for Follow Up: 1. GI follow up for additional evaluation of possible esophageal causes of pain Tests Pending at Discharge: none Medications at Discharge: Please refer to EMR for complete list. We did not make any changes during this admission. Physical Exam: Vitals reviewed, patient alert and without chest pain. He was examined on day of discharge.
--- NOTE | 2018-01-29 13:21 | ASMTLACE ---
EVELIA Length of stay for Answers: 1 day current admission Comorbidities - select Answers: Coronary Artery Disease all that apply # of Emergency department Answers: 1-2 visits in the last 6 months Score: 4 Date Signed: 01/29/2018 11:56 AM Electronically Signed By:Carmen Dee RN
--- NOTE | 2018-01-29 13:23 | ASMTCMCOM ---
CM Note CM Note Notes: Patient medically cleared for discharge to home. No needs identified. CM available should needs arise, Plan: Home with no services. Date Signed: 01/29/2018 11:58 AM Electronically Signed By:Carmen Dee RN
== END 2018-01-29 13:01 | disposition home or self-care (01) ==
LOC: F2W 13:41
PROVIDERS: ADMIT Internal Medicine; ATTEND Internal Medicine
DX: F17.200 Nicotine dependence, unspecified, uncomplicated (principal); I10 Essential (primary) hypertension; K21.9 Gastro-esophageal reflux disease without esophagitis
CPT/HCPCS: 84484-PO; 96374; G0378; J1170; J1644; J2250; J2270; J2405; J3010; Q9967

== ENCOUNTER 2018-07-01 05:52 | Day surgery (SDC) | payer OTHER ==
[2018-07-01] MEDS ORDERED: LR 1,000 ML IV ONE (06:05)
[2018-07-01] MEDS ORDERED: LIDOCAINE 1% 2 ML INJ ID PRN (06:26)
[2018-07-01] MEDS ORDERED: LIDOCAINE 1% 2 ML INJ ONE (06:29)
[2018-07-01] MEDS ORDERED: ROPIVACAINE HCL 20 MG/10 ML INJ EP ONE ×2 (06:47→07:40)
[2018-07-01] MEDS ORDERED: MIDAZOLAM 2 MG/2 ML VIAL ONE (07:13)
[2018-07-01] MEDS ORDERED: MIDAZOLAM 2 MG/2 ML VIAL IVP ONE (07:16)
--- NOTE | 2018-07-01 07:16 | PDANEPAE ---
ANE History of Present Illness Right knee pain, here for arthroscopy ANE Past Medical History - Cardiovascular History Hx Hypertension: Yes Hx Arrhythmias: No Hx Chest Pain: Yes Hx Coronary Artery / Peripheral Vascular Disease: Yes Hx CHF / Valvular Disease: No Hx Palpitations: No Cardiovascular History Comment: CAD with stent x1 placed . htn. angina. hyperlipidemia. cath aug and december of 2017. followed by [facility] - Pulmonary History Hx COPD: No Hx Asthma/Reactive Airway Disease: No Hx Recent Upper Respiratory Infection: No Hx Oxygen in Use at Home: No Hx Sleep Apnea: No Sleep Apnea Screening Result - Last Documented: Positive Pulmonary History Comment: al triggers - Neurologic History Hx Cerebrovascular Accident: No Hx Seizures: No Hx Dementia: No - Endocrine History Hx Diabetes: Yes Endocrine History Comment: type 2- controlled no medications - Renal History Hx Renal Disorders: No - Liver History Hx Hepatic Disorders: No - Neurological & Psychiatric Hx Hx Neurological and Psychiatric Disorders: No - Cancer History Hx Cancer: No - Congenital Disorder History Hx Congenital Disorders: No - GI History Hx Gastrointestinal Disorders: Yes Gastrointestinal History Comment: GERD. esophagus function's at 30% - Other Health History Other Health History: wears reading glasses - Chronic Pain History Chronic Pain: Yes (right knee) - Surgical History Prior Surgeries: cath 01.28.18. cath 08.15.17 with stent placed. right femoral impengement with labral construction 08/2013. rai 20 yrs ago. right wrist ligament reattachment 17 yrs ago. left bunionectomy ANE Review of Systems Review of Systems: - Exercise capacity METS (RN): 4 METS ANE Patient History - Allergies Allergies/Adverse Reactions: amoxicillin [From Augmentin] Allergy (Verified 07/01/18 06:30) severe vomitting ciprofloxacin [From Cipro] Allergy (Verified 07/01/18 06:30) Rash and Disorientation clavulanic acid [From Augmentin] Allergy (Verified 07/01/18 06:30) severe vomitting erythromycin base Allergy (Verified 07/01/18 06:30) Hives latex Allergy (Verified 07/01/18 06:30) Rash morphine Allergy (Verified 07/01/18 06:30) severe vomitting Sulfa (Sulfonamide Antibiotics) Allergy (Verified 07/01/18 06:30) Hives - Home Medications Home Medications: Aspirin EC [Aspirin EC 81 mg (*)] 08/15/17 [Last Taken 06/27/18] Esomeprazole Mag Trihydrate [Nexium] DAILY06 08/15/17 [Last Taken 07/01/18] Herbals/Supplements -Info Only 08/15/17 [Last Taken 06/27/18] Metoprolol Succinate Xr [Toprol Xl 25 mg (*)] DAILY@12 08/15/17 [Last Taken ] Nitroglycerin [Nitrostat 0.4 mg (*)] Q5M PRN 08/15/17 [Last Taken Unknown] Tadalafil [Cialis] PRN 08/15/17 [Last Taken 06/21/18] Tamsulosin HCl [Flomax 0.4 MG (*)] HS 08/15/17 [Last Taken 06/30/18] Pravastatin Sodium [Pravachol] HS 01/27/18 [Last Taken 06/30/18] FENOFIBRATE 06/27/18 [Last Taken 06/30/18] Imipramine HCl HS 06/27/18 [Last Taken 06/30/18] Prasugrel HCl [Effient 10mg (*)] DAILY 06/27/18 [Last Taken 06/24/18] amLODIPine BESYLATE HS 06/27/18 [Last Taken 06/30/18] - NPO status NPO Since - Liquids (Date): 07/01/18 NPO Since - Liquids (Time): 05:00 NPO Since - Solids (Date): 06/30/18 NPO Since - Solids (Time): 22:30 - Smoking Hx Smoking Status: Former smoker - Family Anes Hx Family Hx Anesthesia Complications: none ANE Labs/Vital Signs - Vital Signs Blood Pressure: 119/81 Heart Rate: 87 Respiratory Rate: 16 O2 Sat (%): 94 Height: 182.88 cm Weight: 85.275 kg ANE Physical Exam - Airway Neck exam: FROM Mallampati Score: Class 1 Mouth exam: normal dental/mouth exam - Pulmonary Pulmonary: no respiratory distress - Cardiovascular Cardiovascular: regular rate and rhythym - ASA Status ASA Status: III ANE Anesthesia Plan Anesthesia Plan: GA w LMA (AD canal block if needed post-op) Total IV Anesthesia: No
[2018-07-01] MEDS ORDERED: ONDANSETRON 4 MG/2 ML VIAL ONE (07:19)
[2018-07-01] MEDS ORDERED: LIDOCAINE 2% 5 ML SDV ONE (07:19)
[2018-07-01] MEDS ORDERED: DEXAMETHASONE 4 MG/ML VIAL ONE (07:19)
[2018-07-01] MEDS ORDERED: PROPOFOL 200 MG/20 ML VIAL ONE (07:20)
[2018-07-01] MEDS ORDERED: CEFAZOLIN 2 GM/DEXTROSE/100 ML BAG IV ONE (07:20)
[2018-07-01] MEDS ORDERED: fentaNYL 100 MCG/2 ML INJ ONE ×3 (07:20→08:31)
--- NOTE | 2018-07-01 07:23 | PDGENHP ---
History and Physical History and Physical: see [facility] clinic note Stent. Effiant. off effiant Right knee meniscal tear CTAB RRR healthy skin plan for surgery
[2018-07-01] MEDS ORDERED: ceFAZolin 2 GM/DEXTROSE 100 ML IV ONE (07:30)
[2018-07-01] MEDS ORDERED: KETOROLAC 30 MG/1 ML SDV ONE (07:38)
[2018-07-01] MEDS ORDERED: ONDANSETRON 4 MG/2 ML VIAL IVP PRN (08:15)
[2018-07-01] MEDS ORDERED: HYDROCODONE/APAP 5/325 TAB PO PRN (08:15)
[2018-07-01] MEDS ORDERED: ACETAMINOPHEN 325 MG TAB PO PRN (08:15)
[2018-07-01] MEDS ORDERED: NALOXONE HCL 0.4 MG/ML INJ IVP PRN (08:21)
[2018-07-01] MEDS ORDERED: LR 500 ML IV PRN (08:21)
[2018-07-01] MEDS ORDERED: HYDROmorphONE/DILAUDID 2 MG/ML INJ IVP PRN (08:21)
[2018-07-01] MEDS ORDERED: PROMETHAZINE HCL 25 MG/ML INJ IVP PRN (08:21)
[2018-07-01] MEDS ORDERED: fentaNYL 100 MCG/2 ML INJ IVP PRN (08:21)
[2018-07-01] MEDS ORDERED: MEPERIDINE 25 MG/0.5 ML AMP IVP PRN (08:21)
--- NOTE | 2018-07-01 08:23 | POSTANESTH ---
Post Anesthetic Evaluation Cardiovascular Status: Normal, Stable Respiratory Status: Normal, Stable Level of Consciousness/Mental Status: Can Participate in Eval Pain Control: Adequate, Prn Tx Ordered Nausea/Vomiting Control: Adequate, Prn Tx Ordered Complications Possibly Related to Anesthesia: None Noted
[2018-07-01] MEDS ORDERED: ROPIVACAINE HCL 150 MG/30 ML INJ ONE (08:42)
[2018-07-01] MEDS ORDERED: OXYCODONE/APAP 5/325 TAB ONE (09:03)
[2018-07-01] MEDS: OXYCODONE/APAP 5/325 TAB PO PRN ×2 (09:04→10:05)
--- NOTE | 2018-07-01 09:05 | GOP ---
DATE OF OPERATION: 07/01/2018 SURGEON: Catalino Marroquin MD PREOPERATIVE DIAGNOSIS: Right knee medial meniscus tear. POSTOPERATIVE DIAGNOSIS: 1. Right knee medial meniscus tear. 2. Patellofemoral chondromalacia. 3. Partial lateral meniscus tear at the root. PROCEDURE PERFORMED: Arthroscopic partial medial and lateral meniscectomies. Approximately 30% of t he posterior horn removed of the medial meniscus. Approximately less than 5% of the posterior horn o f the lateral meniscus was removed. Arthroscopic extensive synovectomy. Arthroscopic patellar chond roplasty. FINDINGS: ESTIMATED BLOOD LOSS: minimal. INDICATIONS: The patient is a 53-year-old male. Injury to his right knee. He stands for long perio ds of time. Medial joint line pain. Clinical, radiographic, and MRI confirmed displaced meniscal fl ap. Patella chondromalacia. He has recent stent this year. He is on Effient as a blood thinner. H e has been off Effient for a week. DESCRIPTION OF PROCEDURE: The patient identified in the preoperative holding area. Consent, lateral ity, and preoperative antibiotics were confirmed delivered. All questions were answered. His joselin turner was at the bedside for questions and answers. The patient brought into the operating room. General anesthesia. All extremities well padded. Righ t thigh tourniquet placed. Right lower extremity prepped and draped in the usual sterile fashion. S urgical time-out was performed. Standard two portal technique. Diagnostic arthroscopy included grade 1 patella, with an area of scuf fing on the medial and lateral facets. Medial compartment was grade 1 throughout. There was a displ aced undersurface posterior horn meniscal flap that was incarcerated medially and anteriorly. We maddie rided this through a medial portal. We removed approximately 30% of the posterior horn. Beveled the edges. The medial meniscus root was intact. ACL, PCL were intact. There was inflammation of the a nterior fat pad, and we did an extensive synovectomy of the anterior, medial, and lateral compartment s, and we did a partial lateral meniscectomy of a frayed inner third posterior horn lateral meniscus in the [id number] position. We did a patellar chondroplasty, switched viewing portals in extension, smoothed out 1-2 mm of the fr ayed cartilage. All arthroscopic fluid and debris were removed. Portal sites were closed with 3-0 Monocryl; 5 cc of 0.2% ropivacaine was injected into each portal site, with 10 cc into the joint. A sterile dressing w as applied with Mastisol, Steri-Strips, Xeroform, 4 x 4s, ABD, and a sterile Eric. COMPLICATIONS: None. TOTAL TOURNIQUET TIME: 16 minutes. DISPOSITION: Extubated, to PACU in stable condition. /[id number]/MODL
[2018-07-01 10:45] VITALS: BP 123/75
== END 2018-07-01 10:30 | disposition home or self-care (01) ==
LOC: FSGY 05:52
PROVIDERS: ATTEND Orthopaedic Surgery
PROC: 0SBC4ZZ Excision of Right Knee Joint, Percutaneous Endoscopic Approach (ICD-10-PCS; principal; 2018-07-01 07:30)
DX: M23.221 Derangement of posterior horn of medial meniscus due to old tear or injury, right knee (principal); M23.251 Derangement of posterior horn of lateral meniscus due to old tear or injury, right knee; M22.41 Chondromalacia patellae, right knee; I25.10 Atherosclerotic heart disease of native coronary artery without angina pectoris; I10 Essential (primary) hypertension; E78.2 Mixed hyperlipidemia; F17.200 Nicotine dependence, unspecified, uncomplicated; I43 Cardiomyopathy in diseases classified elsewhere; E11.9 Type 2 diabetes mellitus without complications; K21.9 Gastro-esophageal reflux disease without esophagitis; Z87.891 Personal history of nicotine dependence; Z82.49 Family history of ischemic heart disease and other diseases of the circulatory system; Z95.5 Presence of coronary angioplasty implant and graft; Z91.040 Latex allergy status; Z88.0 Allergy status to penicillin; Z88.2 Allergy status to sulfonamides
CPT/HCPCS: J0690; J1100; J1885; J2250; J2405; J2704; J2795; J3010

== ENCOUNTER → 2018-07-05 | Outpatient (CLI) | payer OTHER | LOC: FIMAGING 14:23 | PROVIDERS: ATTEND Physician Assistant | DX: I82.4Z1 Acute embolism and thrombosis of unspecified deep veins of right distal lower extremity (principal) ==